=== PATIENT | female | born 1960 | race Caucasian/White ===

== ENCOUNTER 2017-07-30 16:49 | Inpatient (IN) | payer MEDICAID ==
[~2017-07-30] VITALS: Ht 154.9 cm; Wt 51.8 kg
[2017-07-30] MEDS ORDERED: normal saline 1000ML IV soln IVB ONE (18:00)
[2017-07-30] MEDS ORDERED: methylPREDNISolone sod succ 125mg/2ml vial IV ONE (18:00)
[2017-07-30 18:19] LABS: BASOPHILS % (AUTO) 0.2 % (0-1); EOSINOPHILS # (AUTO) 0.2 X10'3 (0-0.9); EOSINOPHILS % (AUTO) 1.9 % (0-6); HEMATOCRIT 40.2 % (35.0-45.0); HEMOGLOBIN 13.6 g/dl (12.0-16.0); LYMPHOCYTES # (AUTO) 1.6 X10'3 (1.1-4.8); MEAN CORPUSCULAR HEMOGLOBIN 32.1 PG (27.0-31.0); MEAN CORPUSCULAR VOLUME 94.6 FL (78-98); MEAN PLATELET VOLUME 8.4 FL (7.4-10.4); MONOCYTES # (AUTO) 0.5 X10'3 (0-0.9); MONOCYTES % (AUTO) 5.2 % (2-12); NEUTROPHILS # (AUTO) 6.8 X10'3 (1.8-7.7); NEUTROPHILS % (AUTO) 74.7 % (42-75); PLATELET COUNT 279 X10'3 (140-440); RED BLOOD COUNT 4.25 X10'6 (4.20-5.60); RED CELL DISTRIBUTION WIDTH 12.9 % (11.5-14.5); WHITE BLOOD COUNT 9.1 X10'3 (4.5-11.0)
[2017-07-30 18:34] LABS: ALANINE AMINOTRANSFERASE 23 U/L (12-78); ALBUMIN 3.7 G/DL (3.4-5.0); ALBUMIN/GLOBULIN RATIO 0.9 (1.1-1.5); ALKALINE PHOSPHATASE 104 IU/L (46-116); ANION GAP 12 (8-16); ASPARTATE AMINO TRANSFERASE 17 U/L (10-37); BILIRUBIN,TOTAL 0.4 MG/DL (0.1-1.0); BLOOD UREA NITROGEN 7 MG/DL (7-18); BUN/CREATININE RATIO 8.2 (6.6-38.0); CALCIUM 9.1 MG/DL (8.5-10.1); CHLORIDE 104 MMOL/L (99-107); CREATININE 0.85 MG/DL (0.40-0.90); GLUCOSE 113 MG/DL (70-104); POTASSIUM 3.9 MMOL/L (3.5-5.1); SODIUM 142 MMOL/L (135-145); TOTAL CARBON DIOXIDE 25.9 MMOL/L (24-32); TOTAL PROTEIN 7.7 G/DL (6.4-8.2); eGFR 69 ML/MIN
[2017-07-30] MEDS ORDERED: ipratropium/albuterol 3ml nebule NEB ONE (18:40)
[2017-07-30] MEDS ORDERED: ALBU6.7H INH (21:03)
[2017-07-30] MEDS ORDERED: TIOT4MIS3 (21:03)
[2017-07-30] MEDS ORDERED: mag hydrox/Alum hydrox/simeth 30ml oral suspension PO PRN (22:05)
[2017-07-30] MEDS ORDERED: acetaminophen 325mg tablet PO PRN (22:05)
[2017-07-30] MEDS ORDERED: ondansetron/PF 4mg/2ml inj IV PRN (22:05)
[2017-07-30] MEDS ORDERED: predniSONE 20 mg tablet PO ONE (22:05)
[2017-07-30] MEDS ORDERED: magnesium hydroxide 30ml (MOM) UD suspension PO PRN (22:05)
[2017-07-30] MEDS ORDERED: azithromycin 250mg tablet PO ONE (22:05)
[2017-07-30 22:45] VITALS: BP 136/86
[2017-07-30] MEDS ORDERED: dextrose 50%-water 50ml dispensing syringe IV PRN ×2 (23:20)
[2017-07-30] MEDS ORDERED: dextrose ORAL solution 15 GM/59 ML bottle PO PRN ×2 (23:20)
[2017-07-30] MEDS ORDERED: glucagon, human recombinant 1mg kit SUBCUT PRN (23:20)
[2017-07-30] MEDS ORDERED: MESSAGE TO PHARMACY PO ONE (23:20)
[2017-07-30] MEDS ORDERED: insulin Lispro (HumaLOG) vial - multi-dose SQ SCH (23:20)
[2017-07-31] VITALS: BP 125/79
[2017-07-31 00:22] LABS: HEMOGLOBIN A1C 6.2 % (4.5-6.2)
[2017-07-31 04:32] VITALS: BP 117/80
[2017-07-31 07:45] VITALS: BP 142/83
[2017-07-31] MEDS: ipratropium/albuterol 3ml nebule NEB PRN ×2 (08:09→20:30)
[2017-07-31 12:11] VITALS: BP 112/68
[2017-07-31] MEDS: predniSONE 20 mg tablet PO SCH (13:47)
[2017-07-31] MEDS: azithromycin 250mg tablet PO SCH (13:47)
[2017-07-31 18:00] VITALS: BP 123/77
[2017-07-31] MEDS ORDERED: insulin glargine (Lantus) pen - multi-dose SQ SCH (21:00)
[2017-08-01] VITALS: BP 111/66
[2017-08-01 05:01] LABS: BASOPHILS % (AUTO) 0.2 % (0-1); EOSINOPHILS # (AUTO) 0.2 X10'3 (0-0.9); EOSINOPHILS % (AUTO) 1.2 % (0-6); HEMATOCRIT 37.4 % (35.0-45.0); HEMOGLOBIN 12.9 g/dl (12.0-16.0); LYMPHOCYTES # (AUTO) 2.3 X10'3 (1.1-4.8); LYMPHOCYTES % (AUTO) 17.5 % (21-51); MEAN CORPUSCULAR HEMOGLOBIN 32.4 PG (27.0-31.0); MEAN CORPUSCULAR HGB CONC 34.4 % (33.0-36.5); MEAN PLATELET VOLUME 8.7 FL (7.4-10.4); MONOCYTES # (AUTO) 0.9 X10'3 (0-0.9); NEUTROPHILS # (AUTO) 9.6 X10'3 (1.8-7.7); NEUTROPHILS % (AUTO) 74.1 % (42-75); PLATELET COUNT 304 X10'3 (140-440); RED BLOOD COUNT 3.97 X10'6 (4.20-5.60); RED CELL DISTRIBUTION WIDTH 13.3 % (11.5-14.5); WHITE BLOOD COUNT 12.9 X10'3 (4.5-11.0)
[2017-08-01 05:40] LABS: ALANINE AMINOTRANSFERASE 25 U/L (12-78); ALBUMIN 3.5 G/DL (3.4-5.0); ALBUMIN/GLOBULIN RATIO 0.9 (1.1-1.5); ALKALINE PHOSPHATASE 85 IU/L (46-116); ANION GAP 8 (8-16); ASPARTATE AMINO TRANSFERASE 21 U/L (10-37); BILIRUBIN,TOTAL 0.3 MG/DL (0.1-1.0); BLOOD UREA NITROGEN 18 MG/DL (7-18); BUN/CREATININE RATIO 21.4 (6.6-38.0); CALCIUM 9.2 MG/DL (8.5-10.1); CHLORIDE 106 MMOL/L (99-107); CREATININE 0.84 MG/DL (0.40-0.90); GLUCOSE 122 MG/DL (70-104); POTASSIUM 4.6 MMOL/L (3.5-5.1); SODIUM 145 MMOL/L (135-145); TOTAL CARBON DIOXIDE 30.9 MMOL/L (24-32); TOTAL PROTEIN 7.3 G/DL (6.4-8.2); eGFR 70 ML/MIN
[2017-08-01 07:00] VITALS: BP 106/68
[2017-08-01] MEDS: azithromycin 250mg tablet PO SCH (07:31)
[2017-08-01] MEDS: predniSONE 20 mg tablet PO SCH (07:32)
[2017-08-01] MEDS ORDERED: PRED20TA PO (08:50)
[2017-08-01] MEDS ORDERED: AZI25OT PO ×2 (08:50→09:04)
[2017-08-01] MEDS ORDERED: TIOT4MIS3 INH (08:50)
[2017-08-01] MEDS ORDERED: ALBU6.7H INH (08:50)
== END 2017-08-01 11:18 | disposition home or self-care (01) | DRG 140 ==
LOC: ER 16:49 → ED HOLD 22:01 → SUR 3N 22:39 → OBSVTOIN 07-31 17:40
PROVIDERS: ADMIT Family Medicine; ATTEND Family Medicine
DX: J44.1 Chronic obstructive pulmonary disease with (acute) exacerbation (principal); J96.21 Acute and chronic respiratory failure with hypoxia; D69.6 Thrombocytopenia, unspecified; E11.9 Type 2 diabetes mellitus without complications; F17.210 Nicotine dependence, cigarettes, uncomplicated; Z88.5 Allergy status to narcotic agent; Z79.899 Other long term (current) drug therapy
CPT/HCPCS: 36415; 71045; 80053; 82948; 83036; 85025; 87070; 93005; 94640; 94760; G0378; J1815; J2930; J7030; J7512